=== PATIENT | female | born 1960 | race Caucasian/White ===

== ENCOUNTER 2019-01-11 09:26 | Day surgery (SDC) | payer MEDICARE, MEDICAID ==
--- NOTE | 2019-01-11 08:51 | PCM.PREANE ---
Preanesthetic Assessment - Anesthesia/Transfusion/Family Hx Anesthesia History: Prior Anesthesia Without Reaction Family History of Anesthesia Reaction: No Transfusion History: No Prior Transfusion(s) Intubation History: Unknown - Review of Systems Pulmonary: No Symptoms (GELACIO/Smoker:0.25 ppd times 40 years.), Cough Cardiovascular: No Symptoms (Elevated cholesterol noted.), Dyspnea on Exertion, Edema Gastrointestinal: No Symptoms Neurological: No Symptoms (History of mild cognitive impairment) Other: Reports: Thyroid Problems (Hypothyroid), Depression - Physical Assessment NPO Status Date: 01/10/19 NPO Status Time: 22:15 Vital Signs: HR:83 Resp:20 BP:135/101 Temp:97.9f Sat:97% Height: 1.7 m Weight: 126.099 kg ASA Class: 3 Mental Status: Alert & Oriented x3 Airway Class: Mallampati = 2 Dentition: Reports: Normal Dentition, [place](s), Missing Tooth/Teeth, Caries Thyro-Mental Finger Breadths: 3 Mouth Opening Finger Breadths: 3 ROM/Head Extension: Full Lungs: Clear to Auscultation, Normal Respiratory Effort, Wheezing Cardiovascular: Regular Rate, Regular Rhythm, No Murmurs - Lab Values: All labs reviewed and noted and within acceptable ranges to proceed with scheduled procedure. - Imaging/EKG Impressions: (2014) EKG: SR rate=80 - Allergies Allergies/Adverse Reactions: Allergies Allergy/AdvReac Type Severity Reaction Status Date / Time amoxicillin [Amoxicillin] Allergy Rash Verified 01/08/19 12:25 codeine Allergy Rash, N/V Verified 01/08/19 12:25 morphine Allergy Rash Verified 01/08/19 12:25 Penicillins Allergy Rash Verified 01/08/19 12:25 - Anesthesia Plan Pre-Op Medication Ordered: None - Acknowledgements Anesthesia Type Planned: MAC Pt an Appropriate Candidate for the Planned Anesthesia: Yes Alternatives and Risks of Anesthesia Discussed w Pt/Guardian: Yes Pt/Guardian Understands and Agrees with Anesthesia Plan: Yes PreAnesthesia Questionnaire HEENT History: Reports: Impaired Vision Other HEENT History: loss of vision, wears glasses Cardiovascular History: Reports: High Cholesterol Respiratory History: Reports: Sleep Apnea Gastrointestinal History: Reports: Colon Polyp Other Gastrointestinal History: adenomatous colon polyp Other Genitourinary History: hypertonicity of bladder 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 Other Musculoskeletal History: L knee pain, disorder of bone and cartilage Neurological History: Reports: None Other Neuro History: fatigue, mild cognitive impairment Psychiatric History: Reports: Depression, Other (See Below) Other Psychiatric History: mild cognitive impairment Endocrine/Metabolic History: Reports: Hypothyroidism, Obesity/BMI 30+, Vitamin D Deficiency Hematologic History: Reports: None Other Hematologic History: vitamin D deficiency Immunologic History: Reports: None Oncologic (Cancer) History: Reports: None Other Dermatologic History: candidiasis of skin and nails - Past Surgical History Head Surgeries/Procedures: Reports: None HEENT Surgical History: Reports: Tonsillectomy Cardiovascular Surgical History: Reports: None Respiratory Surgical History: Reports: None GI Surgical History: Reports: Colonoscopy Female Surgical History: Reports: Hysterectomy Male Surgical History: Reports: None Other Endocrine Surgeries/Procedures: parathyroid adenoma, parathyroidectomy Neurological Surgical History: Reports: None Oncologic Surgical History: Reports: None - SUBSTANCE USE Smoking Status *Q: Current Every Day Smoker - HOME MEDS Home Medications: Home Meds Levothyroxine [Synthroid] 100 mcg PO DAILY 07/05/13 [History] Brimonidine/Timolol [Combigan 0.2%/0.5% Ophth Soln] 1 drop EYEBOTH TID 02/10/15 [History] Multivitamin [Multivitamins] 1 each PO DAILY 02/10/15 [History] Travoprost [Travatan Z 0.004% Ophth Soln] 1 drop EYEBOTH BEDTIME 02/10/15 [ History] Cholecalciferol (Vitamin D3) [Vitamin D3] 1,000 unit PO DAILY 01/08/19 [History] Methylcellulose [Fiber Therapy] 1,000 mg PO BID 01/08/19 [History] Polyethylene Glycol 3350 [MiraLAX] 17 gm PO DAILY 01/08/19 [History] Saliva Substitution Combo No.9 [Biotene] 15 ml PO BID 01/08/19 [History] Sertraline [Zoloft] 50 mg PO BEDTIME 01/08/19 [History] Simvastatin [Zocor] 40 mg PO BEDTIME 01/08/19 [History] - CURRENT (IN HOUSE) MEDS Current Meds: Current Medications Lactated Ringer's (Ringers, Lactated) 1,000 mls @ 125 mls/hr IV ASDIRECTED BONNIE Stop: 01/11/19 23:00 Lidocaine/Sodium Bicarbonate (Buffered Lidocaine 1% In Ns 8.4%) 0.25 ml IDERM ONETIME PRN PRN Reason: Prior to IV Start Stop: 01/11/19 23:00 Sodium Chloride (Saline Flush) 10 ml FLUSH ASDIRECTED PRN PRN Reason: Keep Vein Open Stop: 01/11/19 23:00 Discontinued Medications Fentanyl (Sublimaze) Confirm Administered Dose 100 mcg .ROUTE .STK-MED ONE Stop: 01/11/19 07:01 Lidocaine HCl (Xylocaine-Mpf 1%) Confirm Administered Dose 6 mls @ as directed .ROUTE .STK-MED ONE Stop: 01/11/19 07:01 Midazolam HCl (Versed 1 Mg/Ml) Confirm Administered Dose 2 mg .ROUTE .STK-MED ONE Stop: 01/11/19 07:02 Propofol (Diprivan 20 Ml) Confirm Administered Dose 200 mg .ROUTE .STK-MED ONE Stop: 01/11/19 07:01
[~2019-01-11 09:26] MED LIST: Lactated Ringers 1,000 ML IV SCH; Lidocaine 1% 6 ML ONE; Lidocaine 1%/Sod Bicarbonate in NS 8.4% 1 ML Syringe IDERM PRN; Midazolam 1 MG/ML 2 ML SDV ONE; Propofol 200 MG/20 ML SDV ONE; Sodium Chloride 0.9% 10 ML Syringe FLUSH PRN; fentaNYL 100 MCG/2 ML SDV ONE
[2019-01-11] MEDS ORDERED: Albuterol 0.083% 2.5 MG/3 ML Neb Soln NEB ONE ×2 (10:15→14:10)
[2019-01-11] MEDS ORDERED: Propofol 200 MG/20 ML SDV ONE ×4 (12:19→13:17)
[2019-01-11] MEDS ORDERED: Lactated Ringers 1,000 ML ONE (12:20)
--- NOTE | 2019-01-11 14:11 | PCM48HPAN ---
Post Anesthesia Note - EVALUATION WITHIN 48HRS OF ANESTHETIC Vital Signs in Normal Range: Yes Patient Participated in Evaluation: Yes Respiratory Function Stable: Yes Airway Patent: Yes Cardiovascular Function Stable: Yes Hydration Status Stable: Yes Pain Control Satisfactory: Yes Nausea and Vomiting Control Satisfactory: Yes Mental Status Recovered: Yes Vital Signs: Last Vital Signs Temp 36.6 C 01/11/19 Pulse 83 01/11/19 Resp 20 01/11/19 BP 135/101 H 01/11/19 Pulse Ox 98 01/11/19
[2019-01-11 15:29] VITALS: BP 143/93; PULSE 73
--- NOTE | 2019-01-12 08:00 | OR ---
DATE OF OPERATION: 01/11/2019 SURGEON: Amelia Alvarado MD PREOPERATIVE DIAGNOSIS: Prior history of adenomatous polyps. POSTOPERATIVE DIAGNOSIS: 1. Diverticulosis. 2. Polyps x6 OPERATION PERFORMED: Colonoscopy with polypectomy. FINDINGS: 1. Inadequate prep. 2. One cecal polyp, biopsied completely; 2 ascending colon polyps, biopsied completely; 1 transverse colon polyp, biopsied completely; 1 descending polyp, biopsied completely; 1 sigmoid polyp, biopsied completely. There were some areas that were not visualized due to poor prep. COMPLICATIONS: None. INDICATION AND CONSENT: The patient is a 58-year-old female, who had a prior colonoscopy in 2014. The patient had 6 polyps biopsied at that time and they turned out to be edematous polyps, therefore, it was recommended the patient repeat another colonoscopy for surveillance purposes in 3 years. The patient presented to the clinic and was evaluated for repeat colonoscopy. Risks, benefits, and alternatives were discussed with the patient in detail and informed consent was obtained. DESCRIPTION OF PROCEDURE: The patient was taken to the procedure room and placed in the left lateral decubitus position. Following induction of monitored anesthesia, the perianal exam was performed. Sphincter tone was normal. No discernible polyps or hemorrhoids. Then, a scope was inserted and advanced all the way to the cecum. It was difficult to advance the scope due to poor visualization owing to poor preparation; however, the scope was eventually advanced all the way to the cecum. The appendiceal orifice and ileocecal valve were photographed. There was a polyp right at the cecum. This was removed completely with cold forceps. Then, the scope was slowly withdrawn with a heavy amount of irrigation used due to poor visualization. There was some significant amount of residue stool that was clogging the colonoscope making the examination difficult. At the mid ascending colon, there was a flat polyp that was removed partially with a cold snare and the rest of it was removed with cold forceps. There was another separate polyp from the previous one that was also removed with cold forceps. This polyp seemed to be pedunculated. The scope was withdrawn to the transverse colon. There was quite a significant amount of stool residue at this juncture; however, there was a polyp here that was also semi-pedunculated, removed with cold forceps. The scope was removed to the descending colon. Another Semi- pedunculated polyp was removed with cold forceps. Likewise in the sigmoid colon, another small polyp was removed with cold forceps. The polyp sizes ranged from about 1.2 cm in the mid ascending colon for the flat polyp to about 2 mm in the descending colon. Then, the scope was removed into the rectum and retroflexion was performed. There were no abnormalities. There was a mild amount of hemorrhoids. Then, the scope was withdrawn and the procedure was completed. The patient tolerated the procedure well. The patient was awoken from monitored anesthesia and taken to the PACU for further recovery. My expectation is for the patient to go home. I recommend the patient repeat colonoscopy in 1 to 2 years due to incomplete inadequate prep precluding visualization of about 10% to 15% of the colonic wall. The rest of the colon was visualized and polyps were removed. RECOMMENDATION: To repeat colonoscopy in 1 to 2 years for surveillance. ANESTHESIA: ESTIMATED BLOOD LOSS: [id number] /[id number] MTDAntonio
== END 2019-01-11 15:16 | disposition home or self-care (01) ==
LOC: JD.SDS 09:26
PROVIDERS: ATTEND Surgery
DX: Z12.11 Encounter for screening for malignant neoplasm of colon (principal); D12.2 Benign neoplasm of ascending colon; D12.4 Benign neoplasm of descending colon; D12.3 Benign neoplasm of transverse colon; K63.5 Polyp of colon; K57.90 Diverticulosis of intestine, part unspecified, without perforation or abscess without bleeding; K64.9 Unspecified hemorrhoids; E78.5 Hyperlipidemia, unspecified; E03.9 Hypothyroidism, unspecified; E55.9 Vitamin D deficiency, unspecified; E66.9 Obesity, unspecified; F32.9 Major depressive disorder, single episode, unspecified; F17.210 Nicotine dependence, cigarettes, uncomplicated; Z86.010 Personal history of colon polyps; Z68.41 Body mass index [BMI] 40.0-44.9, adult; Z79.899 Other long term (current) drug therapy; Z88.0 Allergy status to penicillin; Z88.5 Allergy status to narcotic agent
CPT/HCPCS: 45380; 94640; J2001; J2250; J2704; J3010; J7120; 00811

== ENCOUNTER 2024-01-12 08:21 | Day surgery (SDC) | payer MEDICARE, MEDICAID ==
[~2024-01-12 08:21] MED LIST changes: +HYDROmorphone 0.5 MG/0.5 ML Syringe IVPUSH PRN; -Lactated Ringers 1,000 ML IV SCH; -Lidocaine 1% 6 ML ONE; -Lidocaine 1%/Sod Bicarbonate in NS 8.4% 1 ML Syringe IDERM PRN; +Ondansetron 4 MG/2 ML SDV IVPUSH PRN; -Propofol 200 MG/20 ML SDV ONE; +Ropivacaine 0.5% 5 MG/ML 30 ML SDV ONE; +Sodium Chloride 0.9% 10 ML Syringe FLUSH SCH; +fentaNYL 100 MCG/2 ML SDV IVPUSH PRN; -fentaNYL 100 MCG/2 ML SDV ONE
[2024-01-12] MEDS: Lactated Ringers 1,000 ML IV SCH (09:00)
[2024-01-12] MEDS ORDERED: Propofol 200 MG/20 ML SDV ONE ×4 (09:19)
[2024-01-12] MEDS ORDERED: ePHEDrine 50 MG/ML SDV ONE ×2 (09:39→10:23)
[2024-01-12] MEDS ORDERED: ceFAZolin 2 GM Vial ONE ×3 (09:44)
[2024-01-12] MEDS ORDERED: Phenylephrine 1% 10 MG/ML SDV ONE (10:22)
[2024-01-12] MEDS ORDERED: Lactated Ringers 1,000 ML IV ONE (10:30)
[2024-01-12] MEDS ORDERED: dexmedeTOMIDine HCl 200 MCG/2 ML SDV ONE (10:45)
[2024-01-12] MEDS: Morphine 8 MG, EPINEPHrine 0.3 MG, Cefuroxime 750 MG, Ketorolac 30 MG, Sodium Chloride ... PRN (10:50)
[2024-01-12] MEDS: Tranexamic Acid 1,000 MG/10 ML Vial ONE (10:59)
[2024-01-12] MEDS: Vancomycin 1 GM SDV ONE (10:59)
[2024-01-12] MEDS: Triamcinolone Acetonide 40 MG/ML 1 ML SDV ONE (11:18)
[2024-01-12] MEDS: Bupivacaine 0.25% 10 ML SDV ONE (11:18)
[2024-01-12] MEDS: Acetaminophen/HYDROcodone 325-5 MG Tab PO PRN (12:56)
[2024-01-12 15:13] VITALS: BP 130/78; PULSE 70
== END 2024-01-12 14:40 | disposition home or self-care (01) ==
LOC: JD.SDS 08:21
PROVIDERS: ATTEND Orthopaedic Surgery
DX: M17.0 Bilateral primary osteoarthritis of knee (principal); E78.00 Pure hypercholesterolemia, unspecified; E03.4 Atrophy of thyroid (acquired); J44.9 Chronic obstructive pulmonary disease, unspecified; F17.210 Nicotine dependence, cigarettes, uncomplicated; Z88.0 Allergy status to penicillin; Z88.1 Allergy status to other antibiotic agents; Z88.5 Allergy status to narcotic agent; Z86.16 Personal history of COVID-19; Z79.899 Other long term (current) drug therapy; Z79.890 Hormone replacement therapy
CPT/HCPCS: 0055T; 20610; 27447; 73560; 97116; 97161; C1713; C1776; J0171; J0665; J0690; J0697; J1885; J2250; J2270; J2371; J2704; J2795; J3301; J3370; J3490; J7120; 01402; 64447; A9270-GY